=== PATIENT | female | born 1955 | race Caucasian/White ===

== ENCOUNTER 2017-12-21 09:29 | Emergency (ER) | payer BC ==
[2017-12-21 11:12] VITALS: BP 129/93
--- NOTE | 2017-12-21 11:32 | UC ---
Throat Pain/Nasal Tee HPI - HPI Summary HPI Summary: Per adoption counselor: "Patient stated she's had a "cold" (feels it in her eyes and a tickle in her throat) intermittently for one week to a month. Face "puffy" for one to two days. Woke up this morning at 0300 with diffuse head and face pain. Some relief with ibuprofen and Sudafed." -pain/pressure over cheeks/forehead and teeth. hurts when she bends forward. sx much worse over past 2-3 days. 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 no fevers, no wheezing. - History of Current Complaint Chief Complaint: UCGeneralIllness Stated Complaint: SINUS CONGESTION Time Seen by Provider: 12/21/17 11:10 Hx Last Menstrual Period: 20 yrs Pain Intensity: 4 - Allergies/Home Medications Allergies/Adverse Reactions: Allergies Allergy/AdvReac Type Severity Reaction Status Date / Time hydrocodone Allergy Vomiting Verified 12/21/17 11:03 peanut Allergy Per Verified 12/21/17 11:03 Allergy Testing verapamil Allergy Edema Verified 12/21/17 11:03 atenolol AdvReac Headache Verified 12/21/17 11:03 cisapride AdvReac Headache Verified 12/21/17 11:03 egg AdvReac Headache Verified 12/21/17 11:03 montelukast AdvReac Headache Verified 12/21/17 11:03 ondansetron AdvReac Headache Verified 12/21/17 11:03 wheat AdvReac "Avoid it" Verified 12/21/17 11:03 Home Medications: Home Medications Aspirin EC TAB* [Ecotrin EC Low Dose 81 MG*] 81 mg PO DAILY 12/21/17 [History Confirmed 12/21/17] Codeine/Butalbital/ASA/Caffein [Fiorinal with Codeine #3 Cap] 1 each PO SEE INSTRUCTIONS PRN 12/21/17 [History Confirmed 12/21/17] Eletriptan 40 mg (Nf)* [Relpax (NF)] 40 mg PO SEE INSTRUCTIONS PRN 12/21/17 [ History Confirmed 12/21/17] Esomeprazole(NF) [Nexium(NF)] 40 mg PO DAILY 12/21/17 [History Confirmed ] Hydrochlorothiazide TAB* [Hydrodiuril TAB*] 12.5 mg PO DAILY 12/21/17 [History Confirmed 12/21/17] Ibuprofen TAB* [Motrin TAB* 800 MG] 800 mg PO Q8H PRN 12/21/17 [History Confirmed 12/21/17] Metoclopramide TAB* [Reglan TAB*] 10 mg PO Q6H PRN 12/21/17 [History Confirmed 12/21/17] Pravastatin (NF) [Pravachol (NF)] 10 mg PO DAILY 12/21/17 [History Confirmed ] Pregabalin CAP(*) [Lyrica CAP(*)] 50 mg PO BID 12/21/17 [History Confirmed 12/21] Propranolol LA CAP* [Inderal LA CAP*] 160 mg PO BID 12/21/17 [History Confirmed 12/21/17] Valsartan TAB* [Diovan TAB*] 320 mg PO DAILY 12/21/17 [History Confirmed ] PMH/Surg Hx/FS Hx/Imm Hx Previously Healthy: Yes Cardiovascular History: Hypertension - Surgical History Surgical History: Yes Surgery Procedure, Year, and Place: T&A. LIPOMAS -head and [place] arm- [facility] [place] 2 RIGHT knee surgerIES 1 LEFT KNEE SURGERIES. D&C X 3- MD OFFICE. tubal Ligation [place] [place]. hysterectomy. LAPAROSCPIC CHOLECYSTECTOMY. LEFT ANKLE SURGERY- [facility] [place] - Family History Known Family History: Positive: Hypertension - Social History Alcohol Use: Occasionally Substance Use Type: None Smoking Status (MU): Never Smoked Tobacco - Immunization History Most Recent Influenza Vaccination: 2012 Review of Systems Constitutional: Negative Skin: Negative Eyes: Negative ENT: Sore Throat, Nasal Discharge, Sinus Congestion, Sinus Pain/Tenderness Respiratory: Negative Cardiovascular: Negative Gastrointestinal: Negative Genitourinary: Negative Motor: Negative Neurovascular: Negative Musculoskeletal: Negative Neurological: Negative Psychological: Negative Is Patient Immunocompromised?: No All Other Systems Reviewed And Are Negative: Yes Physical Exam Triage Information Reviewed: Yes Appearance: Well-Appearing, No Pain Distress, Well-Nourished Vital Signs: Initial Vital Signs Temp 97.8 F 12/21/17 10:58 Pulse 64 12/21/17 10:58 Resp 16 12/21/17 10:58 BP 129/93 12/21/17 10:58 Pulse Ox 100 09/29/18 10:58 Eye Exam: Normal ENT: Positive: Nasal congestion, Nasal drainage, Sinus tenderness Dental Exam: Normal Neck exam: Normal Neck: Positive: Supple, Nontender, No Lymphadenopathy Respiratory: Positive: Lungs clear, Normal breath sounds, No respiratory distress, No accessory muscle use. Negative: Crackles, Rhonchi, Stridor, Wheezing Cardiovascular Exam: Normal Cardiovascular: Positive: RRR, No Murmur, Pulses Normal Abdomen Description: Positive: Nontender, Soft Musculoskeletal Exam: Normal Neurological Exam: Normal Psychological Exam: Normal Skin Exam: Normal Throat Pain/Nasal Course/Dx - Differential Dx/Diagnosis Differential Diagnosis/HQI/PQRI: Laryngitis, Sinusitis, URI Provider Diagnoses: sinusitis Discharge - Sign-Out/Discharge Documenting (check all that apply): Patient Departure All imaging exams completed and their final reports reviewed: No Studies - Discharge Plan Condition: Stable Disposition: HOME Prescriptions: Amoxicillin PO (*) [Amoxicillin 875 MG (*)] 875 mg PO BID #20 tab Patient Education Materials: Sinusitis (ED) Referrals: Hoang Velarde MD [Primary Care Provider] - 1 Week Additional Instructions: Make sure to take a probiotic daily while on antibiotics to help prevent a potential complication of antibiotic use called c diff. Some well known brands that can be found OTC are florastor, align and [facility]. Make sure to complete the entire prescription unless advised otherwise by your health care provider. - Billing Disposition and Condition Condition: STABLE Disposition: Home
== END 2017-12-21 11:48 | disposition home or self-care (01) ==
LOC: UCCORT 09:29
DX: J32.9 Chronic sinusitis, unspecified (principal); Z88.8 Allergy status to other drugs, medicaments and biological substances; I10 Essential (primary) hypertension
CPT/HCPCS: 99212; G0463

== ENCOUNTER 2018-01-11 13:04 | Emergency (ER) | payer BC ==
[2018-01-11 14:02] VITALS: BP 141/80
--- NOTE | 2018-01-11 14:36 | UC ---
Throat Pain/Nasal Tee HPI - HPI Summary HPI Summary: Pt c/o continued right side sinus and upper jaw, pain and GREEN. Pt was treated in november for sinusitis, took amox 875 Q12 X 10. Then saw PCP after finishing amox and was prescribed prednisone 40 mg daily X 4 days. with little improvement. Pt believes she has a sinus infection and is requesting a " stronger antibiotic" - History of Current Complaint Chief Complaint: UCRespiratory Stated Complaint: RECHECK-SINUSES,COUGH,ACHY Time Seen by Provider: 01/11/18 13:51 Hx Obtained From: Patient Hx Last Menstrual Period: 20 yrs ?: No Onset/Duration: Gradual Onset, Lasting Weeks, Still Present Severity: Moderate Pain Intensity: 4 Cough: Nonproductive Associated Signs & Symptoms: Positive: Sinus Discomfort - Epiglottits Risk Factors Epiglottis Risk Factors: Negative - Allergies/Home Medications Allergies/Adverse Reactions: Allergies Allergy/AdvReac Type Severity Reaction Status Date / Time peanut Allergy Per Verified 01/11/18 14:03 Allergy Testing verapamil Allergy Edema Verified 01/11/18 14:03 atenolol AdvReac Headache Verified 01/11/18 14:03 cisapride AdvReac Headache Verified 01/11/18 14:03 egg AdvReac Headache Verified 01/11/18 14:03 hydrocodone AdvReac Vomiting Verified 01/11/18 14:03 montelukast AdvReac Headache Verified 01/11/18 14:03 ondansetron AdvReac Headache Verified 01/11/18 14:03 wheat AdvReac "Avoid it" Verified 01/11/18 14:03 Home Medications: Home Medications Pseudoephedrine HCl [Sudafed] 2 tab PO ONCE 01/11/18 [History Confirmed 01/11/18 ] PMH/Surg Hx/FS Hx/Imm Hx Previously Healthy: Yes - Surgical History Surgical History: Yes Surgery Procedure, Year, and Place: T&A. LIPOMAS -head and ankle arm- [facility]. 2 RIGHT knee surgerIES 1 LEFT KNEE SURGERIES. D&C X 3- MD OFFICE. tubal Ligation -[facility]. hysterectomy. LAPAROSCPIC CHOLECYSTECTOMY. LEFT ANKLE SURGERY- [facility] - Family History Known Family History: Positive: Hypertension - Social History Occupation: Employed Full-time Lives: With Family Alcohol Use: Occasionally Substance Use Type: None Smoking Status (MU): Never Smoked Tobacco Have You Smoked in the Last Year: No - Immunization History Most Recent Influenza Vaccination: 2012 Review of Systems Constitutional: Chills Skin: Negative Eyes: Negative ENT: Sinus Congestion, Sinus Pain/Tenderness Respiratory: Cough Cardiovascular: Negative Gastrointestinal: Negative Genitourinary: Negative Motor: Negative Neurovascular: Negative Musculoskeletal: Negative Neurological: Headache Psychological: Negative Is Patient Immunocompromised?: No All Other Systems Reviewed And Are Negative: Yes Physical Exam Triage Information Reviewed: Yes Appearance: Well-Appearing Vital Signs: Initial Vital Signs Temp 98.6 F 01/11/18 13:53 Pulse 68 01/11/18 13:53 Resp 16 01/11/18 13:53 BP 141/80 01/11/18 13:53 Pulse Ox 98 01/11/18 13:53 Vital Signs Reviewed: Yes Eye Exam: Normal ENT Exam: Other ENT: Positive: Nasal congestion, Sinus tenderness - right side maxillary and frontal tenderness Dental Exam: Normal Neck exam: Normal Respiratory Exam: Normal Cardiovascular Exam: Normal Musculoskeletal Exam: Normal Neurological Exam: Normal Psychological Exam: Normal Skin Exam: Normal Throat Pain/Nasal Course/Dx - Course Assessment/Plan: I discussed with the pt that I did not bvelieve she had a sinus infection and that she needed to follow up with her PCP, dental provider and neurologist. [facility] pt insisted that she had a sinus infection and wanted an antibiotic - Differential Dx/Diagnosis Differential Diagnosis/HQI/PQRI: Laryngitis, Sinusitis, URI Provider Diagnoses: viral syndrome. sinusitis Discharge - Sign-Out/Discharge Documenting (check all that apply): Patient Departure All imaging exams completed and their final reports reviewed: No Studies - Discharge Plan Condition: Stable Disposition: HOME Prescriptions: Azithromycin TAB* [Zithromax TAB (Z-LESLY) 250 mg #6 tabs] 2 tab PO .TODAY, THEN 1 DAILY #1 lesly Fluticasone NASAL SPRAY 50MCG* [Flonase NASAL SPRAY 50MCG*] 2 spray RIGHT NARE DAILY 7 Days #1 btl Patient Education Materials: Sinusitis (ED) Referrals: Hoang Velarde MD [Primary Care Provider] - As Soon As Possible Jason Barahona MD [Medical Doctor] - If Needed Additional Instructions: Please follow up with your PCP, neurologist and dental provider as needed. - Billing Disposition and Condition Condition: STABLE Disposition: Home
== END 2018-01-11 14:48 | disposition home or self-care (01) ==
LOC: UCCORT 13:04
DX: B34.9 Viral infection, unspecified (principal); J32.9 Chronic sinusitis, unspecified; Z88.8 Allergy status to other drugs, medicaments and biological substances; Z88.5 Allergy status to narcotic agent; Z91.018 Allergy to other foods; Z91.010 Allergy to peanuts; Z91.012 Allergy to eggs
CPT/HCPCS: 99212; G0463

== ENCOUNTER 2019-03-08 09:42 | Emergency (ER) | payer BC ==
--- OUTSIDE RECORDS SUMMARY | 2019-03-08 10:17 | XMS REPORT | Continuity of Care Document ---
:1955 External Reference #:[id number] Author Name Liv JOSE G Andrews Address [address] [place] [id number] Care Team Providers Name Role Phone Hoang Velarde MD - Internal Care Team Information Biomedical Scientist Medicine Problems Active Problems Provider Date Migraine without aura Jason Barahona M.D. Onset: 05/06/2014 Social History Type Date Description Comments Sex Unknown ETOH Use Currently consumes alcohol ETOH Use Occasionally consumes alcohol Tobacco Use Start: Unknown Patient has never smoked Recreational Drug Use Denies Drug Use Smoking Status Reviewed: 03/05/19 Patient has never smoked Exercise Type/Frequency Exercises regularly Allergies, Adverse Reactions, Alerts Active Allergies Reaction Severity Comments Date Vicodin 05/06/2014 Atenolol 05/06/2014 Verapamil 05/06/2014 Propulsid 05/06/2014 Singulair 05/06/2014 Medications Active Medications SIG Qnty Indications Ordering Date Provider Calcium 1 po bid Jason Love 07/12/2016 Tablets Tiffanie Barahona Relpax take 1 tablet by 24tabs G43.009 Jason Love 09/29/2012 40mg Tablets mouth twice Tiffanie Barahona daily for headache as needed. max 3 days per week, Ibu take 1 tablet 90tabs Jason Love 01/16/2012 800mg Tablets three times a Tiffanie Barahona day as needed for migraines Zyrtec Allergy 1 by mouth every Unknown 10mg Capsules day at night Dicyclomine HCL 1 po qday prn Unknown 20mg Tablets Lyrica 1 by mouth twice Unknown 50mg Capsules a day Lumigan 1 drop OU at at Unknown 0.01% Solution bedtime Metrogel apply to face Unknown 0.75% Gel daily Tretinoin applies to face Unknown 0.025% Cream daily Senna 2 by mouth daily Unknown 8.6mg Tablets Metamucil Free & Natural 1 tablespoon by Unknown 43% mouth daily Powder Butalbital/Aspirin/Caffein 1 tab by mouth [place], e/Codeine every 6 hrs as MD Hoang [id number] Capsules needed Vitamin B-Complex 1 by mouth every Unknown Tablets day when she remembers Vitamin D 1 by mouth every Unknown (Cholecalciferol) day 1000Unit Capsules Multivitamin Adults 1 po daily Unknown Tablets Co Q10 Maximum Strength 1 po qd when pt Unknown 200mg remembers Capsules Aspir-81 1 by mouth every Unknown 81mg Tablets DR awad Propranolol HCL ER 1 po bid Unknown 160mg Caps ER 24HR Hydrochlorothiazide 1 po qd Unknown 25mg Tablets Nexium 1 po qd Unknown 40mg Capsules Valsartan 1 po qd Unknown 320mg Tablets Medications Administered in Office Medication SIG Qnty Indications Ordering Provider Date Depomedrol 40MG Lele Meeks M.D. 06/12/2016 Injection Depomedrol 40MG Lele Meeks M.D. 03/02/2016 Injection Depomedrol 40MG Lele Meeks M.D. 11/22/2015 Injection Immunizations Description No Information Available Vital Signs Date Vital Result Comment 03/05/2019 6:48pm Heart Rate 61 /min BP Systolic 150 mmHg Pt. states she has been trending "160's/90s" PCP BP Diastolic 92 mmHg Pt. states she has been trending "160's/90s" PCP BP Systolic Sitting 148 mmHg BP Diastolic Sitting 90 mmHg Respiratory Rate 17 /min Body Temperature 98.4 F Pain Level 0 O2 % BldC Oximetry 97 % 03/05/2019 6:48pm BP Systolic 148 mmHg BP Diastolic 90 mmHg Results Test Acquired Date Facility Test Result H/L Range Note Laboratory test 02/18/2019 [facility] Strep neg Negative finding Procedures Description No Information Available Medical Devices Description No Information Available Encounters Type Date Location Provider Dx Diagnosis Office Visit 02/18/2019 [facility] Sadia J02.9 Acute pharyngitis, 5:31p Walk-in at [facility] Herzog NP unspecified Drugs Office Visit 11/05/2018 [facility] Lele Meeks, M76.821 Posterior tibial 1:15p at [place] Tiffanie tendinitis, right leg M76.822 Posterior tibial tendinitis, left leg Assessments Date Code Description Provider 03/05/2019 H10.89 Other conjunctivitis Liv Velezjaylon, JOSE G 02/18/2019 J02.9 Acute pharyngitis, unspecified Sadia Herzog NP 11/05/2018 M76.821 Posterior tibial tendinitis, right leg Lele Meeks M.D. 11/05/2018 M76.822 Posterior tibial tendinitis, left leg Lele Meeks M.D. Plan of Treatment Future Appointment(s):07/16/2019 9:45 am - Jason Barahona M.D. at [place]/ [facility]03/05/2019 - Liv Andrews, FNPH10.89 Other conjunctivitisComments:Started on erythromycin opthalmic 0.5% apply thin ribbon to R eye 4 x daily for ten days. Escripts is not working. Verbal order given to pharmacy. Advised patient to immediately follow up with PCP if she develops pain , changes in vision, vesicular rash, or worsening of current symptoms. Advised to throw out all eyemakeup and OTC eye saline drops and replace with new items which she should begin usingafter conjunctivitis has resolved. Also discussed good handwashing and not sharing makeup or towels.Also advised to contact PCP for blood pressure follow up, taken twice today, 150/92 and 148/90. Patient reports that she has been trending 160's/90s at recent PCP visits and at home.AllComments:Please apply a thin ribbon of erythromycin opthalmic eye ointment 4 times per day for 10 days as prescribed for bacterial conjunctivits. Electronic system is down so the prescription order was placed verbally. Follow up with PCP immediately if you develop any eye pain, vision problems, or rash on face. 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 Please discard current eye makeup and OTC eye saline and replace with new items after conjunctivitis is resolved. To minimize the spread pleasedo not share towels or eye makeup with any other individuals. Continue with frequent handwashing. Functional Status Description No Information Available Mental Status Description No Information Available Referrals Description No Information Available
--- OUTSIDE RECORDS SUMMARY | 2019-03-08 10:17 | XMS REPORT | Continuity of Care Document ---
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 Onset: 05/06/2014 Social History Type Date Description Comments Sex Unknown ETOH Use Currently consumes alcohol ETOH Use Occasionally consumes alcohol Tobacco Use Start: Unknown Patient has never smoked Recreational Drug Use Denies Drug Use Smoking Status Reviewed: 11/05/18 Patient has never smoked Exercise Type/Frequency Exercises [...] per week, Ibu take 1 tablet 90tabs Bimal Watts, 01/16/2012 800mg Tablets three times a MD day as needed for migraines Zyrtec Allergy [...] e/Codeine every 6 hrs as MD Hoang [id number] Capsules needed Vitamin B-Complex 1 by mouth every Unknown Tablets day when she remembers Vitamin D 1 by mouth every Unknown (Cholecalciferol) day 1000Unit Capsules Multivitamin Adults 1 po daily Unknown Tablets Co Q10 Maximum Strength 1 po qd when pt Unknown 200mg remembers Capsules Aspir-81 1 by mouth every Unknown 81mg Tablets DR day Propranolol HCL ER 1 po bid Unknown 160mg Caps ER 24HR Hydrochlorothiazide 1 po qd Unknown 25mg Tablets Nexium 1 po qd Unknown [address]mg [address] Valsartan 1 po qd Unknown 320mg Tablets Medications Administered in Office Medication SIG Qnty Indications Ordering Provider Date Depomedrol 40MG Lele Meeks M.D. 06/12/2016 Injection Depomedrol 40MG Lele Meeks M.D. 03/02/2016 Injection Depomedrol 40MG Lele Meeks M.D. 11/22/2015 Injection Immunizations Description No Information Available Vital Signs Date Vital Result Comment 02/18/2019 5:13pm Heart Rate 97 /min Respiratory Rate 18 /min Body Temperature 99.6 F Pain Level 2 11/05/2018 1:27pm Height 64.75 inches 5'4.75" Heart Rate 70 /min BP Systolic Sitting 124 mmHg BP Diastolic Sitting 72 mmHg Respiratory Rate 16 /min Pain Level 0 O2 % BldC Oximetry 96 % Results Test Acquired Date Facility Test Result H/L Range Note Laboratory test 02/18/2019 [facility] Strep neg Negative finding Procedures Description No Information Available Medical Devices Description No Information Available Encounters Type Date Location Provider Dx Diagnosis Office Visit 11/05/2018 [facility] Lele Meeks, M76.821 Posterior tibial 1:15p at [place] Tiffanie tendinitis, right leg M76.822 Posterior tibial tendinitis, left leg Assessments Date Code Description Provider 02/18/2019 J02.9 Acute pharyngitis, unspecified Sadia Herzog NP 11/05/2018 M76.821 Posterior tibial tendinitis, right leg Lele Meeks M.D. 11/05/2018 M76.822 Posterior tibial tendinitis, left leg Lele Meeks M.D. Plan of Treatment Future Appointment(s):07/16/2019 9:45 am - Jason Barahona M.D. at [place]/ [facility]02/18/2019 - Sadia Herzog NPJ02.9 Acute pharyngitis, unspecifiedFollow up:Do what you can to take care of symtpoms, vicks, ibufprofen or tylenol for headaches warm baths, heat backs and warm tea to help with the sore throat. Follow up with [facility] if not improving. Functional Status Description No Information Available Mental Status Description No Information Available Referrals Description No Information Available
--- OUTSIDE RECORDS SUMMARY | 2019-03-08 10:17 | XMS REPORT | Continuity of Care Document ---
:1955 External Reference #:[id number] Author Name Liv JOSE G Andrews Address [address] [place] [id number] Care Team Providers Name Role Phone Hoang Velarde MD - Internal Care Team Information Live In Housekeeper Nanny Medicine Problems Active Problems Provider Date Migraine [...] e/Codeine every 6 hrs as MD Hoang [id number] Capsules needed Vitamin B-Complex 1 by mouth [...] Result H/L Range Note Laboratory test 02/18/2019 [facility] Strep neg Negative finding Procedures Description No Information Available Medical Devices Description No Information Available Encounters Type Date Location Provider Dx Diagnosis Office Visit 02/18/2019 [facility] Sadia J02.9 Acute pharyngitis, 5:31p Walk-in at [facility] Herz[facility] NP unspecified Drugs Office Visit 11/05/2018 [facility] Lele Meeks, M76.821 Posterior tibial 1:15p at [place] Tiffanie tendinitis, right leg M76.822 Posterior tibial tendinitis, left leg Assessments Date Code Description Provider 03/05/2019 H10.89 Other conjunctivitis Liv Velezjaylon, JOSE G 02/18/2019 J02.9 Acute pharyngitis, unspecified Sadia Herzog NP 11/05/2018 M76.821 Posterior tibial tendinitis, right leg Lele Meeks M.D. 11/05/2018 M76.822 Posterior tibial tendinitis, left leg Lele Meeks M.D. Plan of Treatment Future Appointment(s):07/16/2019 9:45 am - Jason Barahona M.D. at [place]/ [facility]03/05/2019 - Liv Andrews, FNPH10.89 Other conjunctivitisComments:Started on [...]
[2019-03-08 10:30] VITALS: BP 175/98
--- NOTE | 2019-03-08 10:43 | UC ---
Throat Pain/Nasal Tee HPI - HPI Summary HPI Summary: Pt presents with c/o of nasal congestion, sinus pressure and pain, X 1 week. Pt has been "battling" this for several weeks with no improvement, was seen by PCP and given flonase spray and prednisone 2 weeks ago with little to no improvement > Pt also has concern for conjunctivitis in both eye, was seen by [facility] and given erythromycin ointment. Pt reports slight improvement in symptoms but still has redness and drainage. - History of Current Complaint Chief Complaint: UCGeneralIllness Stated Complaint: EYE IRRITATION, SINUS PRESSURE Time Seen by Provider: 03/08/19 10:32 Hx Obtained From: Patient Hx Last Menstrual Period: 20 yrs ?: No Severity: Moderate Pain Intensity: 3 Cough: None Associated Signs & Symptoms: Positive: Sinus Discomfort, Nasal Discharge - Epiglottits Risk Factors Epiglottis Risk Factors: Negative - Allergies/Home Medications Allergies/Adverse Reactions: Allergies Allergy/AdvReac Type Severity Reaction Status Date / Time acetaminophen [From Vicodin] Allergy Vomiting Verified 03/08/19 10:21 peanut Allergy Per Verified 05/11/18 20:09 Allergy Testing verapamil Allergy Edema Verified 05/11/18 20:09 atenolol AdvReac Headache Verified 05/11/18 20:09 cisapride AdvReac Headache Verified 05/11/18 20:09 egg AdvReac Headache Verified 05/11/18 20:09 hydrocodone AdvReac Vomiting Verified 05/11/18 20:09 montelukast AdvReac Headache Verified 05/11/18 20:09 ondansetron AdvReac Headache Verified 05/11/18 20:09 wheat AdvReac "Avoid it" Verified 05/11/18 20:09 PMH/Surg Hx/FS Hx/Imm Hx Previously Healthy: Yes Endocrine History: Dyslipidemia Cardiovascular History: Cardiac Disease, Hypertension Neurological History: Other - restless leg - Surgical History Surgical History: Yes Surgery Procedure, Year, and Place: T&A. LIPOMAS -head and ankle arm- [facility]. 2 RIGHT knee surgerIES. 1 LEFT KNEE SURGERIES. D&C X 3- MD OFFICE. tubal Ligation-[facility] [place]. hysterectomy. LAPAROSCPIC CHOLECYSTECTOMY. LEFT ANKLE SURGERY- [facility] - Family History Known Family History: Positive: Hypertension - Social History Occupation: Employed Full-time Lives: With Family Alcohol Use: Occasionally Substance Use Type: None Smoking Status (MU): Never Smoked Tobacco Have You Smoked in the Last Year: No - Immunization History Most Recent Influenza Vaccination: 2012 Review of Systems All Other Systems Reviewed And Are Negative: Yes Constitutional: Positive: Chills, Fatigue Skin: Positive: Negative Eyes: Positive: Drainage, Eye Redness ENT: Positive: Sinus Congestion, Sinus Pain/Tenderness Physical Exam Vital Signs: Initial Vital Signs Temp 97.8 F 03/08/19 10:22 Pulse 73 03/08/19 10:22 Resp 16 03/08/19 10:22 BP 175/98 03/08/19 10:22 Pulse Ox 97 03/08/19 10:22 Throat Pain/Nasal Course/Dx - Course Course Of Treatment: Pt was offered change in eye drop from ointment to drops. Pt agreed. Pt was recommended to f/u with PCP. Pt verbalized understanding and agreed to plan of care. - Differential Dx/Diagnosis Differential Diagnosis/HQI/PQRI: Influenza, Sinusitis, URI Provider Diagnosis: Sinusitis Discharge ED - Sign-Out/Discharge Documenting (check all that apply): Patient Departure All imaging exams completed and their final reports reviewed: No Studies - Discharge Plan Condition: Stable Disposition: HOME Prescriptions: Amoxicillin PO (*) [Amoxicillin 875 MG (*)] 875 mg PO Q12H #20 tab Ofloxacin 0.3% (Eye Drop) [Ocuflox OPTH 0.3% (Eye Drop)] 2 drop LEFT EYE Q4H 7 Days #1 btl Patient Education Materials: Sinusitis (ED), Conjunctivitis (ED) Forms: *Work Release Referrals: Hoang Velarde MD [Primary Care Provider] - If Needed - Billing Disposition and Condition Condition: STABLE Disposition: Home
== END 2019-03-08 10:51 | disposition home or self-care (01) ==
LOC: UCCORT 09:42
DX: J32.9 Chronic sinusitis, unspecified (principal); I10 Essential (primary) hypertension; Z88.8 Allergy status to other drugs, medicaments and biological substances; Z91.010 Allergy to peanuts; Z91.012 Allergy to eggs; Z88.5 Allergy status to narcotic agent; Z91.018 Allergy to other foods
CPT/HCPCS: 99212; G0463

== ENCOUNTER 2019-05-17 08:14 | Emergency (ER) | payer BC ==
[2019-05-17 08:23] VITALS: BP 152/97
--- NOTE | 2019-05-17 08:27 | UC ---
Respiratory Complaint HPI - HPI Summary HPI Summary: 63 year old female presents with complaint of right sided sinus pain and congestion with associated headache over the past 4 days after cold sx for the past two months. Denies fever nor chills. She denies fever nor chills. - History of Current Complaint Chief Complaint: UCHeadache Stated Complaint: SINUS COMPLAINT Time Seen by Provider: 05/17/19 08:17 Hx Last Menstrual Period: 20 yrs Onset/Duration: Gradual Onset, Lasting Weeks Pain Intensity: 3 - Allergies/Home Medications Allergies/Adverse Reactions: Allergies Allergy/AdvReac Type Severity Reaction Status Date / Time acetaminophen [From Vicodin] Allergy Vomiting Verified 05/17/19 08:23 peanut Allergy Per Verified 05/17/19 08:23 Allergy Testing verapamil Allergy Edema Verified 05/17/19 08:23 atenolol AdvReac Headache Verified 05/17/19 08:23 cisapride AdvReac Headache Verified 05/17/19 08:23 egg AdvReac Headache Verified 05/17/19 08:23 hydrocodone AdvReac Vomiting Verified 05/17/19 08:23 montelukast AdvReac Headache Verified 05/17/19 08:23 ondansetron AdvReac Headache Verified 05/17/19 08:23 wheat AdvReac "Avoid it" Verified 05/17/19 08:23 Home Medications: Home Medications Aspirin EC TAB* [Ecotrin EC Low Dose 81 MG*] 81 mg PO DAILY 12/21/17 [History Confirmed 05/17/19] Codeine/Butalbital/ASA/Caffein [Fiorinal with Codeine #3 Cap] 1 each PO SEE INSTRUCTIONS PRN 12/21/17 [History Confirmed 05/17/19] Eletriptan 40 mg (Nf)* [Relpax (NF)] 40 mg PO SEE INSTRUCTIONS PRN 12/21/17 [ History Confirmed 05/17/19] Esomeprazole(NF) [Nexium(NF)] 40 mg PO DAILY 12/21/17 [History Confirmed ] Metoclopramide TAB* [Reglan TAB*] 10 mg PO Q6H PRN 12/21/17 [History Confirmed 05/17/19] Pravastatin (NF) [Pravachol (NF)] 10 mg PO DAILY 12/21/17 [History Confirmed ] Propranolol LA 160 mg CAP [Inderal LA 160 mg CAP] 160 mg PO BID 12/21/17 [ History Confirmed 05/17/19] Losartan Potassium 100 mg PO DAILY 05/11/18 [History Confirmed 05/17/19] Amoxicillin PO (*) [Amoxicillin 875 MG (*)] 875 mg PO BID 10 Days #20 tab [Rx] Fluticasone NASAL SPRAY 50MCG* [Flonase NASAL SPRAY 50MCG*] 2 spray BOTH NARES DAILY #1 btl 05/17/19 [Rx] Pregabalin 50 mg CAP (*) [Lyrica 50 mg CAP (*)] 50 mg PO BID 05/17/19 [History Confirmed 05/17/19] amLODIPine TAB* [Norvasc 5 mg TAB*] 5 mg PO DAILY 05/17/19 [History Confirmed ] PMH/Surg Hx/FS Hx/Imm Hx Previously Healthy: Yes Cardiovascular History: Hypertension Neurological History: Migraine - Surgical History Surgical History: Yes Surgery Procedure, Year, and Place: T&A. LIPOMAS -head and ankle arm- [facility] [place]. 2 RIGHT knee surgerIES. 1 LEFT KNEE SURGERIES. D&C X 3- MD OFFICE. tubal Ligation-[facility] [place]. hysterectomy. LAPAROSCPIC CHOLECYSTECTOMY. LEFT ANKLE SURGERY- [facility] [place] - Family History Known Family History: Positive: Hypertension - Social History Alcohol Use: Occasionally Substance Use Type: None Smoking Status (MU): Never Smoked Tobacco Have You Smoked in the Last Year: No - Immunization History Most Recent Influenza Vaccination: 2012 Review of Systems All Other Systems Reviewed And Are Negative: Yes Constitutional: Positive: Negative Skin: Positive: Negative Eyes: Positive: Negative ENT: Positive: Sinus Congestion, Sinus Pain/Tenderness - right sided Respiratory: Negative: Shortness Of Breath, Cough Cardiovascular: Positive: Negative Gastrointestinal: Positive: Negative Genitourinary: Positive: Negative Motor: Positive: Negative Neurovascular: Positive: Negative Musculoskeletal: Positive: Negative Neurological/Mental Status: Positive: Negative Psychological: Positive: Negative Is Patient Immunocompromised?: No Physical Exam Triage Information Reviewed: Yes Appearance: Well-Appearing, No Pain Distress Vital Signs: Initial Vital Signs Temp 97.5 F 05/17/19 08:19 Pulse 67 05/17/19 08:19 Resp 16 05/17/19 08:19 BP 152/97 05/17/19 08:19 Pulse Ox 100 05/17/19 08:19 Vital Signs Reviewed: Yes Eye Exam: Normal ENT: Positive: Pharynx normal, Nasal congestion, TMs normal, Sinus tenderness - right maxillary and frontal sinuses Neck: Positive: Supple, Nontender, No Lymphadenopathy Respiratory: Positive: Lungs clear, Normal breath sounds. Negative: Crackles, Rhonchi, Wheezing Cardiovascular: Positive: RRR, No Murmur Abdomen Description: Positive: Nontender, Soft Musculoskeletal Exam: Normal Neurological Exam: Normal Psychological Exam: Normal Skin Exam: Normal Respiratory Course/Dx - Course Course Of Treatment: She states Augmentin causes diarrhea, has responded well to Amoxicillin previously and Flonase. - Differential Dx/Diagnosis Provider Diagnosis: Acute sinusitis Discharge ED - Sign-Out/Discharge Documenting (check all that apply): Patient Departure All imaging exams completed and their final reports reviewed: No Studies - Discharge Plan Condition: Stable Disposition: HOME Prescriptions: Amoxicillin PO (*) [Amoxicillin 875 MG (*)] 875 mg PO BID 10 Days #20 tab Fluticasone NASAL SPRAY 50MCG* [Flonase NASAL SPRAY 50MCG*] 2 spray BOTH NARES DAILY #1 btl Patient Education Materials: Sinusitis (ED) Referrals: Hoang Velarde MD [Primary Care Provider] - Additional Instructions: Take the antibiotic and nasal spray as prescribed. Follow-up with your Primary Care Physician if your symptoms persist or worsen. Also, follow-up with your Primary Care Physician for your Hypertension. - Billing Disposition and Condition Condition: STABLE Disposition: Home
== END 2019-05-17 08:44 | disposition home or self-care (01) ==
LOC: UCCORT 08:14
DX: J01.90 Acute sinusitis, unspecified (principal); I10 Essential (primary) hypertension; G43.909 Migraine, unspecified, not intractable, without status migrainosus; Z88.6 Allergy status to analgesic agent; Z91.010 Allergy to peanuts; Z88.8 Allergy status to other drugs, medicaments and biological substances; Z91.018 Allergy to other foods; Z79.82 Long term (current) use of aspirin; Z91.012 Allergy to eggs; Z79.899 Other long term (current) drug therapy
CPT/HCPCS: 99212; G0463

== ENCOUNTER 2023-12-26 09:18 | Observation (INO) ==
[~2023-12-26 09:18] MED LIST: HYDROmorphone 1 MG/1 ML SYRINGE IV PRN; Metoclopramide 5 MG/ML VIAL (10 mg) IV PRN; NS 0.45% 1000 ml BAG 1,000 ML IV SCH; Naloxone 0.4 mg VIAL 0.4 mg/ml 1 ml VIAL IV PRN; Ondansetron 4 mg VIAL 2 MG/ML 2 ml VIAL IV PRN
[2023-12-26] MEDS ORDERED: Tranexamic Acid 1 GM/100ML BAG 2,000 MG/200 ML BAG IV ONE (10:10)
[2023-12-26] MEDS ORDERED: ceFAZolin 2 GM PREMIX 2 GM/50 ML BAG ONE (10:11)
[2023-12-26 10:37] LABS: Rapid COVID-19 Molecular Undetected (Undetected)
[2023-12-26] MEDS ORDERED: Scopolamine 1 mg/72hr PATCH ONE (10:45)
[2023-12-26] MEDS: Lactated Ringers 1000 ml BAG 1,000 ML IV SCH ×2 (10:47→17:00)
[2023-12-26] MEDS: Scopolamine 1 mg/72hr PATCH TRANSDERM ONE (10:47)
[2023-12-26] MEDS ORDERED: Dexamethasone IV 4 MG/ML VIAL 1 ml VIAL ONE ×3 (11:06→12:55)
[2023-12-26] MEDS ORDERED: ROPIVACAINE 5 MG/ML 30 ML BTL (0.5%) ONE ×2 (11:06→12:23)
[2023-12-26] MEDS ORDERED: fentaNYL 100 mcg/2 ml 50 MCG/ML VIAL ONE ×3 (11:06→15:01)
[2023-12-26] MEDS ORDERED: Midazolam 5 mg/5 ml VIAL 1 mg/ml 5 ml VIAL (5 mg) ONE (11:06)
[2023-12-26] MEDS ORDERED: Midazolam 2 mg/2 ml VIAL 1 mg/ml 2 ml VIAL (2 mg) ONE (12:54)
[2023-12-26] MEDS ORDERED: Lidocaine 2% PF 5 ML VIAL ONE (12:54)
[2023-12-26] MEDS ORDERED: Metoclopramide 5 MG/ML VIAL (10 mg) ONE (13:11)
[2023-12-26] MEDS ORDERED: Propofol 10 MG/ML 20 ML BTL ONE (13:45)
[2023-12-26] MEDS ORDERED: Lactulose 30 ml UDC PO PRN (14:53)
[2023-12-26] MEDS ORDERED: Morphine 2 MG/ML SYRINGE IV PRN (14:53)
[2023-12-26] MEDS ORDERED: Ondansetron 4 mg VIAL 2 MG/ML 2 ml VIAL IV PRN (14:53)
[2023-12-26] MEDS ORDERED: Magnesium Hydroxide LIQ 30 ML UDC PO PRN (14:53)
[2023-12-26] MEDS ORDERED: Ondansetron ODT 4 mg TAB 4 MG TAB PO PRN (14:53)
[2023-12-26] MEDS: fentaNYL 100 mcg/2 ml 50 MCG/ML VIAL IV PRN (15:03)
[2023-12-26] MEDS: Acetaminophen IV 1 GM/100ML 1,000 MG/100 ML BAG IV ONE (16:59)
[2023-12-26] MEDS: Buffered Lidocaine 1% SYRIN 1 ml INTRADERM ONE (17:00)
[2023-12-26] MEDS: Magnesium Hydroxide LIQ 30 ML UDC PO SCH (21:01)
[2023-12-26] MEDS: ceFAZolin 2 GM PREMIX 2 GM/50 ML BAG IV SCH (22:18)
[2023-12-27 05:41] LABS: Hematocrit 34.3 % (35-45); Hemoglobin 11.6 g/dL (11.5-14.3); Mean Platelet Volume 8.9 fL (7.5-11.2); Platelet Count 221 10^3/uL (150-450)
[2023-12-27 06:06] LABS: Calcium 9.2 mg/dL (8.6-10.3); Creatinine, Serum 0.69 mg/dL (0.51-0.95); eGFR CKD-EPI 93.3 (>60)
[2023-12-27] MEDS: Calcium Carb (TUMS) 500 mg CHEW TAB PO PRN (06:11)
[2023-12-27] MEDS: CMCS: Brimonidine/Timolol 0.2%/0.5% OPTH(NF) SOL 5 ML BOTH EYES SCH (08:29)
[2023-12-27] MEDS: Vitamin THERAPEUTIC TAB PO SCH (08:31)
[2023-12-27] MEDS: PROPRANOLOL 160 MG PO SCH (08:31)
[2023-12-27] MEDS: CMCS: Pravastatin 20 mg TAB (NF) PO SCH (08:31)
[2023-12-27 10:43] VITALS: BP 114/70
[2023-12-27] MEDS ORDERED: Latanoprost 0.005% 2.5 ml BTL BOTH EYES SCH (21:00)
== END 2023-12-27 13:50 | disposition home or self-care (01) ==
LOC: OR 09:18 → SSU 09:18
PROVIDERS: ADMIT Orthopaedic Surgery Adult Reconstructive Orthopaedic Surgery; ATTEND Orthopaedic Surgery Adult Reconstructive Orthopaedic Surgery